=== PATIENT | female | born 1995 | race Two or more races ===

== ENCOUNTER 2020-06-12 10:52 | Inpatient (IN) ==
[2020-06-12 11:27] LABS: Basophils # (auto) 0.02 K/uL (0-0.2); Basophils % (auto) 0.2 %; Eosinophils # (auto) 0.13 K/uL (0-0.5); Eosinophils % (auto) 1.5 %; Hematocrit (blood only) 35.8 % (37-47); Hemoglobin 11.7 g/dL (12.0-16.0); Immature Granulocytes # (auto) 0.11 K/uL (0.00-0.02); Immature Granulocytes % (auto) 1.2 %; Lymphocytes # (auto) 1.78 K/uL (1.2-3.4); Mean Corpuscular Hemoglobin 30.5 pg (25-34); Mean Corpuscular Volume 93.5 fL (80-100); Mean Platelet Volume 11.3 fL (7.4-10.4); Monocytes # (auto) 0.58 K/uL (0.11-0.59); Monocytes % (auto) 6.5 %; Neutrophils # (auto) 6.26 K/uL (1.4-6.5); Neutrophils % (auto) 70.6 %; Platelet Count 189 K/uL (130-400); RDW Coefficient of Variation 14.2 % (11.5-14.5); RDW Standard Deviation 48.4 fL (36.4-46.3); Red Blood Count 3.83 M/uL (4.2-5.4); White Blood Count 8.88 K/uL (4.8-10.8)
[2020-06-12 11:40] LABS: Mean Corpuscular Hgb Conc 32.7 g/dL (32-36)
[2020-06-12] MEDS ORDERED: INFLUENZA ADMINISTRATION CHARGE ONE (11:44)
[2020-06-12] MEDS ORDERED: INFLUENZA VIRUS QUAD VACCINE 0.5 ML SYR IM ONE (11:44)
[2020-06-12 11:48] LABS: Albumin Level 2.7 gm/dl (3.4-5.0); BUN Creatinine Ratio 17.4 (10-20); Bilirubin Direct 0.1 mg/dl (0-0.2); Calcium 8.6 mg/dl (8.5-10.1); Creatinine Clr Calc Pharmacy 115.2 ml/min; Est GFR (African American) 117.8; Est GFR (Non-African American) 101.7; Potassium 3.9 mmol/L (3.5-5.1)
[2020-06-12 11:53] LABS: Albumin Globulin Ratio 0.6 (0.9-2); Bilirubin,Total 0.4 mg/dl (0.2-1); Globulin 4.4 gm/dl (2.5-4.0); Total Protein 7.1 gm/dl (6.4-8.2)
[2020-06-12 12:17] LABS: Rubella IgG Antibody Immune (Immune)
[2020-06-12 12:18] LABS: Hepatitis B Surface Antigen Neg (Neg)
[2020-06-12] MEDS ORDERED: OXYTOCIN 30 UNITS/500 ML BAG IV PRN ×2 (12:59→18:44)
[2020-06-12] MEDS ORDERED: miSOPROStoL 50 MCG TAB PO ONE (13:18)
[2020-06-12] MEDS: LACTATED RINGER'S 1,000 ML IV PRN ×2 (18:56→21:10)
[2020-06-12] MEDS ORDERED: SODIUM CHLORIDE 0.9% INJ 10 ML VIAL ONE (20:24)
[2020-06-12] MEDS ORDERED: BUPIVACAINE 0.25% 30 ML VIAL ONE (20:24)
[2020-06-12] MEDS ORDERED: fentaNYL citrate 100 MCG/2 ML VIAL ONE (20:24)
[2020-06-12] MEDS ORDERED: ePHEDrine sulfate 50 MG/ML AMP ONE (20:24)
[2020-06-12] MEDS ORDERED: fentaNYL 2MCG/ML ROPIVACAINE 1.25MG/ML 100 ML BAG EPI ONE (20:25)
[2020-06-12] MEDS ORDERED: NALOXONE HCL 1 MG in SODIUM CHLORIDE 0.9% 1000ML 1,000 ML IV PRN (20:56)
[2020-06-12] MEDS ORDERED: ONDANSETRON INJ 2 MG/ML 2 ML VIAL IV PRN (20:56)
[2020-06-12] MEDS ORDERED: ePHEDrine sulfate 50 MG/ML AMP IV PRN (20:56)
[2020-06-12] MEDS ORDERED: NALOXONE HCL 0.4 MG/1 ML VIAL/CARP IV PRN (20:56)
[2020-06-12] MEDS ORDERED: diphenhydrAMINE 50 MG/ML VIAL IV PRN (20:56)
[2020-06-12] MEDS ORDERED: fentaNYL 2MCG/ML ROPIVACAINE 1.25MG/ML 100 ML BAG EPI PRN (20:56)
--- NOTE | 2020-06-12 21:01 | Anesthesiology Consultation ---
Date of Service June 12, 2020 Covid 19 negative today. Assessment & Plan Chart Review Chart Review: Patient NOT seen in Pre Admission Testing and Acceptable Risk for Labor Epidural Consults Requested none ASA ASA2 Proposed Anesthesia Anesthesia Type: Labor Epidural and CSE Risk / Benefits Reviewed With: PT / POA / Parent / Guardian, Accepts Plan and Informed Consent Obtained History Height/Weight Height: 5 ft Weight: 102.058 kg Allergies Allergy/AdvReac Type Severity Reaction Status Date / Time No Known Allergies Allergy Verified 06/12/20 11:14 Medications Home Medications Medication Instructions Recorded Confirmed Last Taken [id number] 1 tab PO DAILY 06/12/20 06/12/20 06/09/20 08:00 [] Active Medications Generic Name Dose Route Start Last Admin Trade Name Freq PRN Reason Stop Dose Admin Lactated Ringer's 1,000 mls @ 125 mls/hr 06/12/20 12:59 06/12/20 20:20 Lr IV 07/12/20 12:58 999 mls/hr .Q8H PRN Infusion L&D Protocol Protocol Oxytocin 30 units in 500 mls @ 4 mls/hr 06/12/20 18:44 06/12/20 19:54 Pitocin IV 06/14/20 18:43 0.24 units/hr .Q24H PRN 4 mls/hr Labor Induction/Augmentation Titration Protocol 0.24 UNITS/HR NPO Date Last Intake of Fluids: 06/12/20 Time Last Intake of Fluids: 20:00 Date Last Intake of Solids: 06/11/20 Time Last Intake of Solids: 20:00 Past Medical History Medical History Kidney stone Spontaneous vaginal delivery 2011 Exercise / Class Metabolic Activity II 4-5 Yardwork/Stairs/Walk up hill Past Family History Family History Other Family history non-contributory Past Anesthesia History No Hx of Anesthesia Complications and No Family Hx of Anesthesia Complications Social History Smoking Status: Former smoker Hx Alcohol Use: No Hx Substance Use: No substance use type: does not use Review of Systems no chest pain or sob Physical Exam Vital Signs Last Vital Signs Temp 36.7 C 06/12/20 20:30 Pulse 78 12/29/20 20:52 Resp 18 06/12/20 20:30 BP 142/93 H 06/12/20 19:54 Pulse Ox 100 06/12/20 20:52 ENMT Mouth: no TMJ abnormality Thyromental Distance: > or= 3.5 Finger Breadths Mallampati Class: II Neck normal visual inspection Respiratory normal respiratory effort Auscultation: lungs clear to auscultation bilaterally Cardiovascular Rate/Rhythm: regular rate and regular rhythm Musculoskeletal Spine: normal cervical ROM Neurologic moves all extremities Psychiatric Orientation: alert and oriented x 3 Testing Laboratory Results 06/12/20 11:12 06/12/20 11:12 Blood Type A Positive 06/12/20 11:12 Antibody Screen NEGATIVE 06/12/20 11:12
[2020-06-12] MEDS ORDERED: ERYTHROMYCIN OP OINT 1 GM PKT ONE (23:53)
[2020-06-13] MEDS ORDERED: METHYLERGONOVINE MALEATE 0.2 MG/ML AMP ONE (01:07)
[2020-06-13] MEDS ORDERED: miSOPROStoL 200 MCG TAB ONE (01:11)
[2020-06-13] MEDS ORDERED: ACETAMINOPHEN W/CODEINE #3 1 TAB PO PRN (01:21)
[2020-06-13] MEDS ORDERED: bisacodyL 10 MG SUPP PR PRN (01:21)
[2020-06-13] MEDS ORDERED: OXYTOCIN 30 UNITS/500 ML BAG IV PRN (01:21)
[2020-06-13] MEDS ORDERED: DIPHTHERIA/TETANUS/PERTUSSIS 0.5 ML SYR/VIAL IM ONE (01:21)
[2020-06-13] MEDS ORDERED: METHYLERGONOVINE MALEATE 0.2 MG/ML AMP IM ONE (01:21)
[2020-06-13] MEDS ORDERED: SUPERCREAM 0.870% 15 GM JAR EXT PRN (01:21)
[2020-06-13] MEDS ORDERED: HYDROCORTISONE ACETATE 25 MG SUPP PR PRN (01:21)
[2020-06-13] MEDS ORDERED: miSOPROStoL 200 MCG TAB PR ONE (01:21)
[2020-06-13] MEDS ORDERED: oxyCODONE/ACETAMINOPHEN 5mg/325mg TAB PO PRN (01:21)
[2020-06-13] MEDS ORDERED: BENZOCAINE 20% AER SPR 82.5 GM CAN EXT PRN (01:21)
[2020-06-13] MEDS ORDERED: ACETAMINOPHEN 325 MG TAB PO PRN (01:21)
[2020-06-13] MEDS: IBUPROFEN 600 MG TAB PO PRN ×3 (01:37→20:08)
--- NOTE | 2020-06-13 04:07 | Operative Report (OR) ---
DATE OF OPERATION: 06/12/2020 DELIVERY NOTE She is 2, para 2, blood type is A positive, group B strep negative. Due date is 06/20/2020 followed in our office for care and delivery. She previously had a vaginal delivery, 9 pound infant. course was uneventful until about 3 days prior to admission where she had a sudden onset of hypertension. She had pressures in the office of 150/110, 150/105 and so she was sent for induction. She also was spilling 2+ protein. She was admitted to the labor floor, evaluated. Her platelets were good. Liver enzymes were good. She was started on induction. The induction was started with 50 mcg Cytotec p.o. She contracted somewhat irregularly. She was then augmented with IV Pitocin. On IV Pitocin, contractions started to get hard, she requested and received epidural anesthesia, obtained good pain relief. Then shortly after the epidural, membranes were ruptured about 5 cm. Fluid at this time was clear. She continued to have good regular contractions. The Pitocin was gradually turned up and she pushed the infant down and crowned it. There was some little bit of problem with shoulder dystocia, head gradually cleared the perineum. There was a tight nuchal cord. I did do a couple maneuvers before clamping the cord. We dislodged the anterior shoulder and then pulled down on the anterior shoulder then up on the posterior shoulder and the anterior shoulder started to move, the anterior shoulder cleared the symphysis. I clamped and cut the cord and then delivered the without much difficulty after that was somewhat limp at , but given my estimation of 1 and 5 minute Apgars were probably about 4 and 9 respectively. Following this, cord blood was taken with IV Pitocin running, the placenta was removed intact. We did have some episodes of heavy bleeding and uterine atony and this was controlled by using IV Pitocin, IM Methergine and 800 mcg of rectal Cytotec. With this, uterus contracted nicely. Hemostasis was achieved. Estimated blood loss was about 450 mL. She had 2 periurethral lacerations which were sewn with a running 3-0 chromic and a very superficial perineal laceration at 6 o'clock, which was also sewn with a 3-0 chromic. Following this, vag exam revealed no hematoma formation or sponges in the vagina. We did use a red rubber Lanza catheter to empty the bladder and to ensure urethral patency. The patient tolerated the procedure well. I attest to the content of the Intraoperative Record and any orders documented therein. Any exception s are noted below.
[2020-06-13] MEDS: PRENATAL VITAMIN 1 TAB PO SCH (07:24)
[2020-06-13] MEDS: DOCUSATE SODIUM 100 MG CAP PO SCH ×2 (07:24→20:08)
--- NOTE | 2020-06-13 09:09 | Anesthesia Procedure Note ---
Date of Service June 13, 2020 Anesthesia Post Epidural Note Vital Signs Vital Signs: Temp Pulse Resp BP Pulse Ox 37.5 C 50 L 16 134/66 99 06/13/20 03:50 06/13/20 03:50 06/13/20 03:50 06/13/20 03:50 06/13/20 01:22 Notes Mental Status: alert / awake / arousable Nausea / Vomiting: adequately controlled Pain: adequately controlled Airway Patency, RR, SpO2: stable & adequate BP & HR: stable & adequate Hydration State: stable & adequate Neuraxial Anesthesia: was administered and sensory block is resolving Anesthetic Complications: no major complications apparent Epidural: Removed without complications and With tip intact
[2020-06-14 06:03] LABS: Hematocrit (blood only) 28.7 % (37-47); Hemoglobin 9.3 g/dL (12.0-16.0); Mean Corpuscular Hemoglobin 30.2 pg (25-34); Mean Corpuscular Hgb Conc 32.4 g/dL (32-36); Mean Corpuscular Volume 93.2 fL (80-100); Mean Platelet Volume 10.6 fL (7.4-10.4); Platelet Count 156 K/uL (130-400); RDW Coefficient of Variation 14.6 % (11.5-14.5); RDW Standard Deviation 48.9 fL (36.4-46.3); Red Blood Count 3.08 M/uL (4.2-5.4); White Blood Count 8.81 K/uL (4.8-10.8)
[2020-06-14] MEDS: IBUPROFEN 600 MG TAB PO PRN (07:47)
[2020-06-14] MEDS: DOCUSATE SODIUM 100 MG CAP PO SCH (07:48)
[2020-06-14] MEDS: PRENATAL VITAMIN 1 TAB PO SCH (07:49)
--- NOTE | 2020-06-14 10:12 | Obstetrical Progress Note ---
Date of Service June 14, 2020 Assessment & Plan Admission and Anticipated Discharge Date Admission Date: June 12, 2020 Physical Exam Physical Exam: abdomen soft and non tender no calf tenderness ambulating well vaginal bleeding scant hg 9.3 Results & Data ([id number]) Vital Signs (Past 12 Hours) Vital Signs Temp Pulse Resp BP 06/14/20 07:30 36.8 C 59 L 18 130/87 06/14/20 03:50 36.5 C 68 16 115/76 06/14/20 00:10 36.9 C 65 16 128/88
[2020-06-14] MEDS ORDERED: bisacodyL 5 MG TABEC PO SCH (20:00)
== END 2020-06-14 13:10 | disposition home or self-care (01) | DRG 807 ==
LOC: OPB 10:52 → 4S1 10:54 → 4S2 06-13 03:35